=== PATIENT | male | born 1985 | race African-American/Black ===

== ENCOUNTER 2017-01-13 08:26 | Emergency (ER) | payer OTHER ==
[~2017-01-13 08:26] MED LIST: PARO10TA24 PO
[2017-01-13] MEDS ORDERED: IBUP800T PO (08:48)
[2017-01-13] MEDS ORDERED: LOPE2TAB27 PO (08:48)
[2017-01-13 08:58] VITALS: BP 144/83
--- NOTE | 2017-01-13 09:27 | ED.ADGEN ---
Past History Past Medical History: Anxiety, Other Past Surgical History: No Surgical History Alcohol Use: Occasionally Drug Use: None Adult General Chief Complaint Chief Complaint myalgias, diarrhea HPI HPI Patient is a 31 year old male who presents with body aches and 5 loose stools since midnight. He denies any known fevers, no sore or headache reported but states he had 2 family members diagnosed with strep throat recently. Patient's not attempted any symptom control and medication. He denies any associated abdominal pain with his loose stools. He has not been on antibiotics in the last 90 days. Patient follows at [facility] Review of Systems Review of Systems Constitutional: Denies fever or chills [] Eyes: Denies change in visual acuity, redness, or eye pain [] HENT: Denies nasal congestion or sore throat [] Respiratory: Denies cough or shortness of breath [] Cardiovascular: Denies chest pain GI: Denies abdominal pain, nausea, vomiting, or bloody stools : Denies dysuria or hematuria [] Musculoskeletal: Her history of present illness Integument: Denies rash or skin lesions [] Neurologic: Denies headache, focal weakness or sensory changes [] Endocrine: Denies polyuria or polydipsia [] Allergies Allergies Allergies Coded Allergies Type Severity Reaction Last Updated Verified No Known Drug Allergies 05/03/16 No Physical Exam Physical Exam Constitutional: Well developed, well nourished, no acute distress, non-toxic appearance. [] HENT: Normocephalic, atraumatic, bilateral external ears normal, oropharynx moist, no oral exudates, nose normal. Uvula rises midline, no edema of the oropharynx Eyes: PERRLA, EOMI, conjunctiva normal, no discharge. [] Neck: Normal range of motion, no tenderness, supple, no stridor. [] Cardiovascular:Heart rate regular with regular rhythm, no murmur [] Lungs & Thorax: Bilateral breath sounds clear to auscultation, no wheeze, crackles or rhonchi Abdomen: Bowel sounds normal, soft, no tenderness, no masses, no pulsatile masses. [] Skin: Warm, dry, no erythema, no rash. [] Back: No tenderness, no CVA tenderness. [] Extremities: No tenderness, no cyanosis, no clubbing, ROM intact, no edema. [] Neurologic: Alert and oriented X 3, normal motor function, normal sensory function, no focal deficits noted. [] Psychologic: Affect normal, judgement normal, mood normal. [] Current Patient Data Vital Signs Vital Signs Date Time Temp Pulse Resp B/P Pulse Ox O2 Delivery O2 Flow Rate FiO2 01/13/17 08:58 96 18 144/83 100 Room Air 01/13/17 08:26 97.6 EKG EKG [] Radiology/Procedures Radiology/Procedures [] Course & Med Decision Making Course & Med Decision Making Pertinent Labs and Imaging studies reviewed. (See chart for details) Patient likely has a viral illness. I recommended if the diarrhea is persistent for another 24 hours to start loperamide. I also recommended ibuprofen for the myalgias. Return precautions given and patient follow-up with PCP. Final Impression Final Impression Diarrhea Myalgias[] Problems: Dragon Disclaimer Dragon Disclaimer This electronic medical record was generated, in whole or in part, using a voice recognition dictation system. EULALIA BONILLA MD Jan 13, 2017 09:27
== END 2017-01-13 08:59 | disposition home or self-care (01) ==
LOC: ER 08:26
DX: R19.7 Diarrhea, unspecified (principal); M79.1 Myalgia; F41.9 Anxiety disorder, unspecified
CPT/HCPCS: 99282

== ENCOUNTER 2017-10-28 10:01 | Emergency (ER) | payer OTHER ==
[~2017-10-28] VITALS: Ht 190.5 cm; Wt 129.3 kg
[~2017-10-28 10:01] MED LIST changes: +IBUP800T19 PO; +LOPE2TAB27 PO; -PARO10TA24 PO; +PARO10TA57 PO
[2017-10-28] MEDS ORDERED: OSEL75CA PO (10:15)
--- NOTE | 2017-10-28 10:16 | PHYS DOC ---
General Chief Complaint: FEVER Stated Complaint: flu Time Seen by MD: 10:14 Source: patient Exam Limitations: no limitations Problems: History of Present Illness Initial Comments Patient is a 32-year-old male who comes to the ED complaining of the flu. Patient states that his was diagnosed with influenza last week and treated with Tamiflu. He says last night he developed fever chills chest burning and dry cough along with clear nasal discharge and eyes burning. He says these symptoms are consistent with those his had and that he has had in the past with influenza. Timing/Duration: 24 hours Severity: severe Modifying Factors: improves with medication, worse with movement, improves with rest Associated Symptoms: cough, fever/chills, headaches, malaise, other Allergies: Coded Allergies: No Known Drug Allergies (Unverified , 05/03/16) Past Medical History Medical History: no pertinent history (anxiety, PTSD) Surgical History: noncontributory Social History Smoker: quit greater than 1 year Alcohol: occasionally Drugs: none Review of Systems Constitutional: see HPI EENTM: see HPI Respiratory: cough, denies shortness of breath, wheezing Cardiovascular: denies chest pain, denies palpitations, denies syncope Gastrointestinal: denies abdominal pain Musculoskeletal: denies back pain, denies joint swelling, muscle pain, denies neck pain Psychiatric/Neurological: headache, denies numbness, denies paresthesia Physical Exam General Appearance: mild distress (ill appearing) Eyes: bilateral eye PERRL, bilateral eye EOMI, bilateral eye other ( conjunctivae injected) Ear, Nose, Throat: normal ENT inspection (clear nasal discharge), normal pharynx Neck: full range of motion, supple Respiratory: normal breath sounds, no respiratory distress Gastrointestinal: non tender, soft Back: no CVA tenderness, no vertebral tenderness Extremities: non-tender, normal inspection Neurologic/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 I offered the patient the opportunity for testing and he declined stating that if we were able to he would prefer just to get the Tamiflu. I discussed signs and symptoms to monitor as well as indications for urgent return to the department. I discussed [id number] and prescription medications as well as close PCP follow-up. Patient expressed agreement and understanding with treatment plan. Departure Time of Disposition: 10:15 Disposition: 01 HOME, SELF-CARE (he was here) Diagnosis: influenza Condition: STABLE Patient Instructions: Influenza, Adult Additional Instructions: Please review the patient education materials given by ED staff. Off work through November 01, note given. Aggressive hydration with Gatorade and water. [id number] Tylenol, ibuprofen, and analgesic throat sprays as needed. Prescription: Tamiflu Follow-up with your doctor in 7-10 days if not better. Return to ED with new or changing symptoms. LUCY FARRAR DO Oct 28, 2017 10:16
[2017-10-28 10:23] VITALS: BP 130/67
== END 2017-10-28 10:25 | disposition home or self-care (01) ==
LOC: ER 10:01
DX: J11.1 Influenza due to unidentified influenza virus with other respiratory manifestations (principal); F43.10 Post-traumatic stress disorder, unspecified; F41.9 Anxiety disorder, unspecified; Z87.891 Personal history of nicotine dependence
CPT/HCPCS: 99283

== ENCOUNTER 2018-07-25 21:17 | Emergency (ER) | payer OTHER ==
[~2018-07-25] VITALS: Ht 190.5 cm; Wt 129.3 kg
[~2018-07-25 21:17] MED LIST changes: +OSEL75CA PO
[2018-07-25 21:28] VITALS: BP 147/94
--- NOTE | 2018-07-25 23:06 | PHYS DOC ---
Past History Past Medical History: Anxiety, Other Past Surgical History: No Surgical History Alcohol Use: Occasionally Drug Use: None Adult General Chief Complaint Chief Complaint: ABDOMINAL PAIN HPI HPI 32 y/o male presents with 1 day history of RLQ abdominal pain. Reports pain as a cramp. Reports currently 2/10 on pain scale. Denies N/V/D or constipation. Denies fever/chills. Denies trauma. Reports pain has not improved. Review of Systems Review of Systems Constitutional: Denies fever or chills [] Eyes: Denies change in visual acuity, redness, or eye pain [] HENT: Denies nasal congestion or sore throat [] Respiratory: Denies cough or shortness of breath [] Cardiovascular: Denies chest pain or palpitations GI: Reports abdominal pain; denies nausea, vomiting, constipation or diarrhea [] : Denies dysuria or hematuria [] Musculoskeletal: Denies back pain or joint pain [] Integument: Denies rash or skin lesions [] Neurologic: Denies headache, focal weakness or sensory changes [] Complete systems were reviewed and found to be within normal limits, except as documented in this note. Current Medications Current Medications Current Medications Medications (Trade) Dose Ordered Sig/Kulwant Start Time Stop Time Status Last Admin Dose Admin Info (Do NOT chart on this entry -- for MONITORING) 1 each PRN DAILY PRN 07/25/18 23:15 07/27/18 23:14 Iohexol (Omnipaque 300 Mg/ml) 75 ml 1X ONCE 07/25/18 23:30 07/25/18 23:31 Allergies Allergies Allergies Coded Allergies Type Severity Reaction Last Updated Verified No Known Drug Allergies 05/03/16 No Physical Exam Physical Exam Constitutional: Well developed, well nourished, no acute distress, non-toxic appearance. [] HENT: Normocephalic, atraumatic, oropharynx moist, Eyes: Conjunctiva normal, no discharge. [] Neck: Normal range of motion, no tenderness, supple, no stridor. [] Cardiovascular: Heart rate regular rhythm, no murmur [] Lungs & Thorax: Bilateral breath sounds clear to auscultation [] Abdomen: Soft, RLQ tenderness, McBurney's point positive, fullness noted to RLQ Skin: Warm, dry, no erythema, no rash. [] Back: No tenderness, no CVA tenderness. [] Extremities: No tenderness, no cyanosis, no clubbing, ROM intact, no edema. [] Neurologic: Alert and oriented X 3, normal motor function, normal sensory function, no focal deficits noted. [] Psychologic: Affect normal, judgement normal, mood normal. [] Current Patient Data Vital Signs Vital Signs Date Time Temp Pulse Resp B/P (MAP) Pulse Ox O2 Delivery O2 Flow Rate FiO2 07/25/18 21:28 98.2 70 18 98 Room Air EKG EKG [] Radiology/Procedures Radiology/Procedures [] Course & Med Decision Making Course & Med Decision Making Pertinent Labs and Imaging studies reviewed. (See chart for details) Patient presents with RLQ abdominal pain. Tenderness to McBurney's point. Labs ordered. CT abd/pelvis also ordered for rule out acute appendicitis. Patient subsequently refused laboratory draw and reported he needed to "go home ". AMA form signed after discussion of risks of leaving AMA. Patient accepting of risk of leaving AMA including permanent disability and/or . Patient acknowledges understanding and agreement. Patient to follow up with PCP or return for continuation or worsening of symptoms. Dragon Disclaimer Dragon Disclaimer This electronic medical record was generated, in whole or in part, using a voice recognition dictation system. Departure Departure: Impression: Primary Impression: Abdominal pain Additional Impression: Left against medical advice Disposition: 07 AGAINST MEDICAL ADVICE Condition: GUARDED Referrals: PCP,UNKNOWN (PCP) Patient Instructions: Discharge Against Medical Advice Problem Qualifiers Primary Impression: Abdominal pain Abdominal location: right lower quadrant Qualified Codes: R10.31 - Right lower quadrant pain JEANNETTE HANEY DO Jul 25, 2018 23:06
[2018-07-25] MEDS ORDERED: CONTRAST GIVEN MC PRN (23:15)
[2018-07-25] MEDS ORDERED: IOHEXOL 300 MG/ML 75 ML VIAL. IV ONE (23:30)
== END 2018-07-25 23:09 | disposition left against medical advice (07) ==
LOC: ER 21:17
DX: R10.31 Right lower quadrant pain (principal)
CPT/HCPCS: 99281

== ENCOUNTER 2019-04-12 09:18 | Emergency (ER) | payer OTHER ==
[~2019-04-12] VITALS: Ht 190.5 cm; Wt 108.4 kg
[2019-04-12] MEDS ORDERED: FLUORESCEIN 1MG EYE STRIP. OD ONE (09:30)
[2019-04-12] MEDS ORDERED: TETRACAINE 0.5% OPHTH SOLUTION 4ML BOTTLE. OD ONE (09:30)
[2019-04-12] MEDS ORDERED: FLUORESCEIN 1MG EYE STRIP. ONE (09:31)
--- NOTE | 2019-04-12 09:44 | PHYS DOC ---
Past History Past Medical History: Anxiety, Other Past Surgical History: No Surgical History Alcohol Use: Occasionally Drug Use: None Adult General Chief Complaint Chief Complaint: EYE PROBLEMS HPI HPI 33-year-old male presents with right eye irritation. The patient woke up this morning and felt like there was a foreign body in his right eye. He rinsed it out with water and refresh eyedrops. It still felt like there was something in there so he came to the hospital. His conjunctivae was very irritated. Review of Systems Review of Systems Constitutional: Denies fever or chills [] Eyes: Foreign body right eye Denies change in visual acuity [] HENT: Denies nasal congestion or sore throat [] Respiratory: Denies cough or shortness of breath [] Cardiovascular: No additional information not addressed in HPI [] GI: Denies abdominal pain, nausea, vomiting, bloody stools or diarrhea [] : Denies dysuria or hematuria [] Musculoskeletal: Denies back pain or joint pain [] Integument: Denies rash or skin lesions [] Neurologic: Denies headache, focal weakness or sensory changes [] Endocrine: Denies polyuria or polydipsia [] All other systems were reviewed and found to be within normal limits, except as documented in this note. Current Medications Current Medications Current Medications Medications (Trade) Dose Ordered Sig/Kulwant Start Time Stop Time Status Last Admin Dose Admin Fluorescein Sodium (Ful-Mer 1mg) 1 strip STK-MED ONCE 04/12/19 09:31 04/12/19 09:32 DC Tetracaine HCl (Tetracaine) 1 drop 1X ONCE 04/12/19 09:30 04/12/19 09:32 DC 04/12/19 09:30 1 DROP Allergies Allergies Allergies Coded Allergies Type Severity Reaction Last Updated Verified No Known Drug Allergies 05/03/16 No Physical Exam Physical Exam Constitutional: Well developed, well nourished, no acute distress, non-toxic appearance. [] HENT: Normocephalic, atraumatic, bilateral external ears normal, oropharynx moist, no oral exudates, nose normal. [] Eyes: PERRLA, EOMI, conjunctiva erythematous right eye, no discharge. [] Neck: Normal range of motion, no tenderness, supple, no stridor. [] Cardiovascular:Heart rate regular rhythm, no murmur [] Lungs & Thorax: Bilateral breath sounds clear to auscultation [] Abdomen: Bowel sounds normal, soft, no tenderness, no masses, no pulsatile masses. [] Skin: Warm, dry, no erythema, no rash. [] Back: No tenderness, no CVA tenderness. [] Extremities: No tenderness, no cyanosis, no clubbing, ROM intact, no edema. [] Neurologic: Alert and oriented X 3, normal motor function, normal sensory function, no focal deficits noted. [] Psychologic: Affect normal, judgement normal, mood normal. [] Current Patient Data Vital Signs Vital Signs Date Time Temp Pulse Resp B/P (MAP) Pulse Ox O2 Delivery O2 Flow Rate FiO2 04/12/19 09:20 98.0 62 18 97 Room Air EKG EKG [] Radiology/Procedures Radiology/Procedures [] Course & Med Decision Making Course & Med Decision Making Pertinent Labs and Imaging studies reviewed. (See chart for details) I numbed the patient's right eye with tetracaine eyedrops. I then placed fluorescein dye in his eye. I examined the eye with the Torres lamp and did not find any foreign body, increased uptake, or abrasion. I then reexamined the patient second time with normal light and inverted eyelid. No foreign bodies were found. I suspect the patient was able to flush out the foreign object, but was still having irritation. This will resolve on its own. He is stable for discharge at this time. [] Dragon Disclaimer Dragon Disclaimer This electronic medical record was generated, in whole or in part, using a voice recognition dictation system. Departure Departure: Impression: Primary Impression: Foreign body of right eye Disposition: 01 HOME, SELF-CARE Condition: STABLE Referrals: PCP,NO (PCP) Patient Instructions: Eye - Foreign Body, [id number] Problem Qualifiers Primary Impression: Foreign body of right eye Encounter type: initial encounter Qualified Codes: T15.91XA - Foreign body on external eye, part unspecified, right eye, initial encounter JITENDRA JONES DO Apr 12, 2019 09:44
[2019-04-12 09:50] VITALS: BP 109/57
== END 2019-04-12 09:50 | disposition home or self-care (01) ==
LOC: ER 09:18
DX: T15.91XA Foreign body on external eye, part unspecified, right eye, initial encounter (principal); L53.8 Other specified erythematous conditions; F41.9 Anxiety disorder, unspecified; X58.XXXA Exposure to other specified factors, initial encounter; Y93.89 Activity, other specified; Y92.89 Other specified places as the place of occurrence of the external cause; Y99.8 Other external cause status
CPT/HCPCS: 99283